=== PATIENT | male | born 1935 | race Caucasian/White ===

== ENCOUNTER 2019-01-12 09:55 | Day surgery (SDC) | payer MEDICARE ==
[2019-01-12] MEDS ORDERED: Marcaine 0.5% SDV 10 ML IJ ONE (09:56)
[2019-01-12] MEDS ORDERED: Depo-Medrol 40 MG/ML IM ONE (09:56)
[2019-01-12 10:49] LABS: INR 1.21 (0.8-3.0); PROTIME 13.7 SECONDS (8.83-12.87)
[2019-01-12] MEDS ORDERED: Ketamine HCl 50 MG/ML ONE (11:23)
[2019-01-12] MEDS ORDERED: DIPRIVAN 200 MG/20 ML IV ONE (11:23)
--- NOTE | 2019-01-12 12:19 | XRAY ---
Indication: Left shoulder injection. Intraoperative fluoroscopy was provided for 16 seconds. Single digital spot image submitted for interpretation demonstrates needle tip projecting over the superior left glenohumeral joint. Small amount of contrast injected for needle tip placement. Correlate with intraoperative findings/report.
--- NOTE | 2019-01-12 12:19 | XRAY ---
Indication: Left knee injection. Intraoperative fluoroscopy was provided for 4 seconds. Single digital spot image submitted for interpretation demonstrates needle tip projecting over the left femur intercondylar notch. Small amount of contrast injected for needle tip placement. Correlate with intraoperative findings/report.
--- NOTE | 2019-01-12 12:29 | XRAY ---
Indication: Right knee injection. Intraoperative fluoroscopy was provided for 5 seconds. Single digital spot image submitted for interpretation demonstrates needle tip projecting over the right femur intercondylar notch. Small amount of contrast injected for needle tip placement. Correlate with intraoperative findings/report.
[2019-01-12] MEDS ORDERED: Lactated Ringers 1,000 ML IV ONE (14:18)
--- NOTE | 2019-01-12 16:54 | XRAY ---
5 seconds of fluoroscopy was used in surgery for a right intra-articular knee injection.
--- NOTE | 2019-01-12 16:54 | XRAY ---
4 seconds of fluoroscopy was used in surgery for a left intra-articular knee injection.
--- NOTE | 2019-01-12 17:04 | XRAY ---
16 seconds of fluoroscopy was used in surgery for a left shoulder injection.
== END 2019-01-12 12:03 | disposition home or self-care (01) ==
LOC: SDC-PAIN 09:55
PROVIDERS: ATTEND Psychiatry & Neurology Pain Medicine
DX: M17.0 Bilateral primary osteoarthritis of knee (principal); M19.012 Primary osteoarthritis, left shoulder; I10 Essential (primary) hypertension; K21.9 Gastro-esophageal reflux disease without esophagitis; Z79.01 Long term (current) use of anticoagulants; Z79.899 Other long term (current) drug therapy
CPT/HCPCS: 20610; 36415; 73030; 73560; 77002; 85610; J1030; J2704; Q9966

== ENCOUNTER 2019-02-23 08:57 | Day surgery (SDC) | payer MEDICARE ==
[2019-02-23] MEDS ORDERED: Marcaine 0.5% SDV 10 ML IJ ONE (08:58)
[2019-02-23 10:21] LABS: INR 1.56 (0.8-3.0); PROTIME 17.8 SECONDS (8.83-12.87)
[2019-02-23] MEDS ORDERED: Ketamine HCl 50 MG/ML ONE (11:10)
[2019-02-23] MEDS ORDERED: DIPRIVAN 200 MG/20 ML IV ONE (11:10)
--- NOTE | 2019-02-23 13:36 | XRAY ---
Indication: Genicular nerve block. Intraoperative fluoroscopy was provided for 11 seconds. 2 digital spot images submitted or interpretation demonstrates anterior needle tips projecting over the medial/lateral supracondylar region and medial tibial plateau. Correlate with intraoperative findings/report.
--- NOTE | 2019-02-23 14:27 | XRAY ---
11 seconds of fluoroscopy was used in surgery for a right genicular nerve block.
[2019-02-23] MEDS ORDERED: Lactated Ringers 1,000 ML IV ONE (14:47)
== END 2019-02-23 11:35 ==
LOC: SDC-PAIN 08:57
PROVIDERS: ATTEND Psychiatry & Neurology Pain Medicine
DX: M17.11 Unilateral primary osteoarthritis, right knee (principal); I10 Essential (primary) hypertension; K21.9 Gastro-esophageal reflux disease without esophagitis; Z86.718 Personal history of other venous thrombosis and embolism; Z79.01 Long term (current) use of anticoagulants; Z79.899 Other long term (current) drug therapy
CPT/HCPCS: 36415; 64450; 73560; 77002; 85610; J2704

== ENCOUNTER 2019-05-04 07:45 | Day surgery (SDC) | payer MEDICARE ==
[2019-05-04] MEDS ORDERED: DIPRIVAN 200 MG/20 ML IV ONE (08:06)
[2019-05-04] MEDS ORDERED: Ketamine HCl 50 MG/ML ONE (08:08)
[2019-05-04 08:45] LABS: INR 1.22 (0.8-3.0); PROTIME 13.8 SECONDS (8.83-12.87)
--- NOTE | 2019-05-04 12:20 | XRAY ---
Indication: Right knee genicular nerve block. Intraoperative fluoroscopy was provided for 17 seconds. 3 digital spot images submitted for interpretation demonstrates anterior needle tips projecting over the medial/lateral supra condyles and medial tibial plateau of the right knee. Correlate with intraoperative findings/report.
--- NOTE | 2019-05-04 12:36 | XRAY ---
17 seconds fluoroscopy time in surgery for right knee injection.
[2019-05-04] MEDS ORDERED: Lactated Ringers 1,000 ML IV ONE (17:01)
== END 2019-05-04 09:55 | disposition home or self-care (01) ==
LOC: SDC-PAIN 07:45
PROVIDERS: ATTEND Psychiatry & Neurology Pain Medicine
DX: M17.11 Unilateral primary osteoarthritis, right knee (principal); I10 Essential (primary) hypertension; K21.9 Gastro-esophageal reflux disease without esophagitis; Z86.718 Personal history of other venous thrombosis and embolism; Z79.01 Long term (current) use of anticoagulants; Z79.899 Other long term (current) drug therapy
CPT/HCPCS: 36415; 64640; 73560; 77002; 85610; 99100; J2704